=== PATIENT | female | born 1985 | race Caucasian/White ===

== ENCOUNTER 2017-05-13 18:15 | Emergency (ER) | payer MEDICAID, OTHER ==
[~2017-05-13] VITALS: Ht 157.5 cm; Wt 58.5 kg
[2017-05-13 18:37] VITALS: Ht 157.5 cm; Wt 58.5 kg
[2017-05-13] MEDS ORDERED: IBUP-1542 PO (19:07)
[2017-05-13] MEDS ORDERED: CEPH-443 PO (19:07)
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
[2017-05-13] MEDS ORDERED: DIPHTH/TET/ACEL PERTUSS (ADULT) 0.5 ML VIAL IM* ONE (19:30)
== END 2017-05-13 19:30 | disposition home or self-care (01) ==
LOC: FTE 18:15
DX: S01.512A Laceration without foreign body of oral cavity, initial encounter (principal); Y04.0XXA Assault by unarmed brawl or fight, initial encounter; Z23 Encounter for immunization
CPT/HCPCS: 90471; 90715; Z7502

== ENCOUNTER 2017-08-14 22:03 | Emergency (ER) | payer OTHER ==
[~2017-08-14] VITALS: Ht 157.5 cm; Wt 60.3 kg
[~2017-08-14 22:03] MED LIST: CEPH-443 PO; IBUP-1542 PO
[2017-08-14 22:16] VITALS: Ht 157.5 cm; Wt 60.3 kg
[2017-08-15] MEDS ORDERED: IBUPROFEN 600 MG TAB PO ONE (00:30)
[2017-08-15] MEDS ORDERED: CETI10CA PO (00:35)
[2017-08-15] MEDS ORDERED: AMOX500C2 PO (00:35)
[2017-08-15] MEDS ORDERED: IBUP-1542 PO (00:35)
[2017-08-15 01:04] VITALS: BP 130/82; PULSE 81; RESP 19; TEMP 98
--- NOTE | 2017-08-15 01:28 | ERD ---
ER Documentation Chief Complaint Chief Complaint BIB SELF C/O LEFT EAR PAIN X 5 DAYS HPI 31-year-old female presents here to emergency department for complaints of left ear pain that started 5 days ago. Patient described the pain as throbbing pain , 6/10 scale, not better or worse with anything. Patient denies any problems with hearing. Patient denies any ear discharge. Patient denies any fever or chills. Patient did not take any medications to help with symptoms. ROS All systems reviewed and are negative except as per history of present illness. Medications Home Meds Active Scripts Cetirizine Hcl* (Zyrtec*) 10 Mg Capsule, 10 MG PO DAILY, #30 TAB.CHEW Prov:OSMAN RUIZ NP 08/15/17 Amoxicillin* (Amoxicillin*) 500 Mg Cap, 500 MG PO TID for 10 Days, CAP Prov:OSMAN RUIZ NP 08/15/17 Ibuprofen* (Motrin*) 600 Mg Tab, 600 MG PO Q6H Y for PAIN AND OR ELEVATED TEMP, #30 TAB Prov:OSMAN RUIZ NP 08/15/17 Ibuprofen* (Motrin*) 600 Mg Tab, 600 MG PO Q6H Y for PAIN AND OR ELEVATED TEMP, #30 TAB Prov:OSMAN RUIZ NP 05/13/17 Cephalexin* (Keflex*) 500 Mg Capsule, 500 MG PO QID for 5 Days, CAP Prov:OSMAN RUIZ CHANGE CONTROL MANAGER 05/13/17 Allergies Allergies: Coded Allergies: No Known Allergy (Unverified , 05/13/17) PMhx/Soc Medical and Surgical Hx: pt denies Medical Hx, pt denies Surgical Hx History of Surgery: No Anesthesia Reaction: No Hx Neurological Disorder: No Hx Respiratory Disorders: No Hx Cardiac Disorders: No Hx Psychiatric Problems: No Hx Miscellaneous Medical Probl: No Hx Alcohol Use: No Hx Substance Use: No Hx Tobacco Use: No Smoking Status: Never smoker FmHx Family History: No coronary disease, No diabetes, No other Physical Exam Vitals Vital Signs Date Time Temp Pulse Resp B/P Pulse Ox O2 Delivery O2 Flow Rate FiO2 08/15/17 01:04 98.0 81 19 130/82 99 Room Air 08/14/17 22:16 98.0 87 20 125/59 100 Physical Exam GENERAL: The patient is well developed and appropriate for usual state of health, in no apparent distress. HEENT: Atraumatic. Ears: Left ear tympanic membrane noted to be erythematous and bulging. Normal right tympanic membrane, no erythema or bulging. No ear canal swelling. No ear discharge. Nose: normal nasal turbinates, no erythema or swelling. Normal nasal discharge. Throat: oropharynx clear. No tonsillar swelling or tonsillar exudates. No lymphadenopathy. CHEST: Clear to auscultation bilaterally. There are no rales, wheezes or rhonchi. HEART: Regular rate and rhythm. No murmurs, clicks, rubs or gallops. No S3 or S4. ABDOMEN: Soft, nontender and nondistended. Good bowel sounds. No rebound or guarding. No gross peritonitis. No gross organomegaly or masses. No Sheldon sign or McBurney point tenderness. BACK: No midline or flank tenderness. EXTREMITIES: Equal pulses bilaterally. There is no peripheral clubbing, cyanosis or edema. No focal swelling or erythema. Full range of motion. Grossly neurovascularly intact. NEURO: Alert and oriented. Cranial nerves 2-12 intact. Motor strength in all 4 extremities with 5/5 strength. Sensation grossly intact. Normal speech and gait. SKIN: There is no apparent rash or petechia. The skin is warm and dry. HEMATOLOGIC AND LYMPHATIC: There is no evidence of excessive bruising or lymphedema. No gross cervical, axillary, or inguinal lymphadenopathy. Results 24 hrs Current Medications Medications (Trade) Dose Ordered Sig/Yassine Route PRN Reason Start Time Stop Time Status Last Admin Dose Admin Ibuprofen (Motrin) 600 mg ONCE ONCE PO 08/15/17 00:30 08/15/17 00:31 DC 08/15/17 00:27 Patient was given medication for pain here in emergency department, after treatment, patient verbalized feeling much better. Patient's pain is improved. Procedures/MDM Medical decision making: Patient symptoms is likely consistent with left otitis media. No symptoms of otitis externa or mastoiditis. No foreign body in the ear. No TM perforation. No cerumen impaction. Disposition: Home. Stable. Prescription was given for amoxicillin, Zyrtec, ibuprofen, is advised to follow-up with primary care doctor in 2-3 days for reevaluation of symptoms. Patient is advised to avoid using Q-tips to clean the ear. Patient is advised to return to emergency department for any worsening symptoms. Disclaimer: Inadvertent spelling and grammatical errors are likely due to EHR/ dictation software use and do not reflect on the overall quality of patient care. Also, please note that the electronic time recorded on this note does not necessarily reflect the actual time of the patient encounter. Departure Diagnosis: Primary Impression: Otitis media Otitis media type: serous Chronicity: acute Laterality: left Recurrence: not specified as recurrent Qualified Code: H65.02 - Acute serous otitis media of left ear, recurrence not specified Condition: Stable Patient Instructions: Otitis Media, Abx Tx (Adult) OSMAN RUIZ NP Aug 15, 2017 01:28
== END 2017-08-15 01:05 | disposition home or self-care (01) ==
LOC: FTE 22:03
DX: H65.02 Acute serous otitis media, left ear (principal)
CPT/HCPCS: Z7502; Z7610; 99283